=== PATIENT | male | born 1950 | race Caucasian/White ===

== ENCOUNTER 2017-09-27 14:53 | Emergency (ER) | payer MEDICARE, OTHER ==
[~2017-09-27] VITALS: Ht 188 cm; Wt 97.7 kg
[2017-09-27 15:00] VITALS: TEMP 98
[2017-09-27 15:29] LABS: BASO # 0.1 (0.0-0.2); BASO % 0.4 % (0.0-2.0); EOS # 0.1 (0.0-0.7); EOS % 0.7 % (0-4.0); GRAN # 7.8 (1.4-6.5); GRAN % 68.4 % (42.2-75.2); HEMOGLOBIN 17.8 g/dl (13.5-18.0); LYMPH # 2.6 (1.2-3.4); LYMPH % 22.5 % (20.0-51.0); MEAN CELL VOLUME 98 fl (80.0-100.0); MEAN CORPUSCULAR HEMOGLOBIN 33 pg (27.0-31.0); MEAN CORPUSCULAR HGB CONC 34 g/dl (33.0-37.0); MONO # 0.9 (0.1-0.6); MONO % 7.6 % (1.7-9.3); PLATELET COUNT 199 K/mm3 (130-400); RED BLOOD COUNT 5.41 M/mm3 (4.20-5.60); WHITE BLOOD COUNT 11.3 K/mm3 (4.8-10.8)
[2017-09-27 15:32] LABS: HEMATOCRIT 52.9 % (42.0-52.0)
[2017-09-27] MEDS ORDERED: LIPITOR 10MG10 MG PO (15:33)
[2017-09-27] MEDS ORDERED: COZAAR100 MG PO (15:33)
[2017-09-27 15:43] LABS: ADJUSTED CALCIUM 8.8 mg/dL (8.4-10.2); ALANINE AMINOTRANSFERASE 35 U/L (21-72); ALBUMIN 4.8 gm/dL (3.5-5.0); ALKALINE PHOSPHATASE 124 U/L (50-136); ANION GAP 14 mmol/L (7-16); BILIRUBIN,TOTAL 0.7 mg/dL (0.0-1.0); BLOOD UREA NITROGEN 20 mg/dL (9-20); CALCIUM 9.4 mg/dL (8.4-10.2); CARBON DIOXIDE 23 mmol/L (22-30); CHLORIDE 106 mmol/L (98-107); CREATININE, serum 1.24 mg/dL (0.66-1.25); GLUCOSE 103 mg/dL (74-106); POTASSIUM 4.1 mmol/L (3.4-5.0); SODIUM 144 mmol/L (137-145); TOTAL PROTEIN 7.9 gm/dL (6.4-8.2)
[2017-09-27 15:54] LABS: INR 1.1 (0.8-3.0); PROTHROMBIN TIME 11.7 SECONDS (9.7-12.8)
[2017-09-27 15:56] LABS: PARTIAL THROMBOPLASTIN TIME 30.5 SECONDS (26.0-37.0)
[2017-09-27 16:00] LABS: TROPONIN-I < 0.012 ng/mL (0.000-0.034)
[2017-09-27] MEDS ORDERED: LOPRESSOR 225 MG/TAB PO (16:34)
[2017-09-27] MEDS ORDERED: XARELTO20 MG PO (16:34)
[2017-09-27 16:46] VITALS: BP 124/90; PULSE 77
== END 2017-09-27 16:48 | disposition home or self-care (01) ==
LOC: COL.ER 14:53
PROVIDERS: Family Medicine
DX: I48.92 Unspecified atrial flutter (principal); I10 Essential (primary) hypertension
CPT/HCPCS: J1650; J7030

== ENCOUNTER 2017-09-29 06:57 | Day surgery (SDC) | payer MEDICARE, OTHER ==
[~2017-09-29] VITALS: Ht 188.1 cm; Wt 97.3 kg
[~2017-09-29 06:57] MED LIST: COZAAR100 MG PO; LIPITOR 10MG10 MG PO; LOPRESSOR 225 MG/TAB PO; XARELTO20 MG PO
[2017-09-29 07:52] LABS: INR 1.3 (0.8-3.0); PROTHROMBIN TIME 14.1 SECONDS (9.7-12.8)
[2017-09-29] MEDS ORDERED: XARELTO20 MG PO (07:52)
[2017-09-29] MEDS ORDERED: LOPRESSOR 225 MG/TAB PO (07:52)
[2017-09-29] MEDS ORDERED: ASPIRIN 81M81 MG/TA2 PO (07:54)
[2017-09-29 07:56] LABS: CALCIUM 8.9 mg/dL (8.4-10.2); CREATININE, serum 1.07 mg/dL (0.66-1.25); POTASSIUM 4.1 mmol/L (3.4-5.0)
[2017-09-29 07:57] VITALS: BP 124/80; PULSE 81; TEMP 98.3
[2017-09-29 08:27] LABS: THYROID STIMULATING HORMONE 4.16 uIU/mL (0.465-4.680)
[2017-09-29] MEDS ORDERED: TOPROL XL 50MG50 MG PO (08:58)
== END 2017-09-29 11:12 | disposition home or self-care (01) ==
LOC: COL.CAR 06:57
PROVIDERS: Internal Medicine Cardiovascular Disease
DX: I48.91 Unspecified atrial fibrillation (principal); Z53.9 Procedure and treatment not carried out, unspecified reason; I10 Essential (primary) hypertension; E78.5 Hyperlipidemia, unspecified; Z82.49 Family history of ischemic heart disease and other diseases of the circulatory system; G47.33 Obstructive sleep apnea (adult) (pediatric); R05 Cough; R53.83 Other fatigue; R73.02 Impaired glucose tolerance (oral); B35.9 Dermatophytosis, unspecified; B07.0 Plantar wart; E78.00 Pure hypercholesterolemia, unspecified; N40.0 Benign prostatic hyperplasia without lower urinary tract symptoms; Z68.27 Body mass index [BMI] 27.0-27.9, adult; M67.442 Ganglion, left hand
CPT/HCPCS: J7030